=== PATIENT | male | born 1970 | race Caucasian/White ===

== ENCOUNTER 2018-08-16 01:39 | Emergency (ER) | payer OTHER ==
[~2018-08-16] VITALS: Ht 182.9 cm; Wt 97.7 kg
[2018-08-16 01:45] VITALS: Ht 182.9 cm; Wt 97.7 kg
[2018-08-16] MEDS ORDERED: PROZAC20 MG PO (01:47)
[2018-08-16 02:18] VITALS: BP 141/82
== END 2018-08-16 02:20 | disposition home or self-care (01) ==
LOC: D.ER 01:39
DX: S01.541A Puncture wound with foreign body of lip, initial encounter (principal); X58.XXXA Exposure to other specified factors, initial encounter; Y93.89 Activity, other specified; Y92.019 Unspecified place in single-family (private) house as the place of occurrence of the external cause